=== PATIENT | male | born 1985 | race Caucasian/White ===

== ENCOUNTER 2017-06-18 20:56 | Inpatient (IN) | payer MEDICAID ==
[~2017-06-18] VITALS: Ht 170.2 cm; Wt 84.8 kg
[2017-06-18] MEDS: NACL 0.9% 1,000 ML IV SCH (12:43)
--- NOTE | 2017-06-18 20:56 | NUR ---
BIBA TO ER BED 6
[2017-06-18 20:59] VITALS: BP 120/77
[2017-06-18] MEDS ORDERED: NACL 0.9% 1,000 ML IV ONE ×2 (21:00→23:10)
[2017-06-18] MEDS ORDERED: LORazepam 2 MG/ML VIAL IVP ONE (21:00)
--- NOTE | 2017-06-18 21:00 | NUR ---
31 Y/O M BIB [facility] C/P ETOH, MUSHROOMS, MARIJUANA X 1DAY. PT RESPONDS TO [facility] BUT DOES NOT FOLLOW [facility] D/T ETOH, AND ALOC. VSS, ABELINO [place] MADE AWARE.
[2017-06-18 21:16] LABS: BASOPHILS # (AUTO) 0.1 K/uL (0.00-0.22); BASOPHILS % (AUTO) 1.7 % (0.0-2.0); EOSINOPHILS # (AUTO) 0.2 K/uL (0-0.4); EOSINOPHILS % (AUTO) 2.5 % (0.0-4.0); HEMOGLOBIN 14.5 g/dL (12.0-18.0); LYMPHOCYTES # (AUTO) 1.6 K/uL (2.0-11.5); LYMPHOCYTES % (AUTO) 18.3 % (20.5-51.1); MEAN CORPUSCULAR HEMOGLOBIN 31 pg (27-31); MEAN CORPUSCULAR HGB CONC 35 g/dL (33-37); MEAN CORPUSCULAR VOLUME 89 fL (80-94); MONOCYTES # (AUTO) 0.4 K/uL (0.8-1.0); MONOCYTES % (AUTO) 4.9 % (1.7-9.3); NEUTROPHILS # (AUTO) 6.3 K/uL (1.8-7.7); NEUTROPHILS % (AUTO) 72.6 % (42.2-75.2); PLATELET COUNT (AUTO) 184 K/uL (140-450); RED BLOOD CELL COUNT(AUTO) 4.73 MIL/uL (4.20-6.10); WHITE BLOOD COUNT (AUTO) 8.6 K/uL (4.8-10.8)
[2017-06-18 21:32] LABS: PROTHROMBIN TIME 10.3 secs (10.8-13.4)
[2017-06-18 21:35] LABS: ALBUMIN 3.7 g/dL (3.4-5.0); ANION GAP 11.6 (8-16); ASPARTATE AMINOTRANSFERASE 19 U/L (15-37); CARBON DIOXIDE 25.9 mmol/L (21-32); CHLORIDE 107 mmol/L (98-107); CREATININE 1.1 mg/dL (0.7-1.3); GFR ARICAN-AMERICAN 99 mL/min (>90); GLUCOSE 132 mg/dL (74-106); POTASSIUM 3.5 mmol/L (3.5-5.1); SODIUM SERUM 141 mmol/L (136-145); TOTAL BILIRUBIN 0.3 mg/dL (0.0-1.0); UREA NITROGEN, BLOOD 24 mg/dL (7-18)
[2017-06-18 21:37] LABS: ACETAMINOPHEN < 0.5 ug/ml (10-30); SALICYLATE < 2.8 mg/dL (2.8-20.0)
[2017-06-18 22:06] LABS: BARBITURATE, URINE NEG. ng/ml (NEG <=200); BENZODIAZEPINE, URINE NEG. ng/mL (NEG <=200); CANNABINOID, URINE POS. ng/mL (NEG <=50); COCAINE, URINE NEG. ng/mL (NEG <=300); OPIATE, URINE NEG. ng/mL (NEG <=2000); PHENCYCLIDINE SCREEN,URINE NEG. ng/mL (NEG <=25)
--- NOTE | 2017-06-18 22:13 | NUR ---
PT RESTING IN BED ASLEEP, VSS, SINUS RHYTHM, WILL CONT TO MONITOR.
[2017-06-18] MEDS ORDERED: MULTIVITAMIN-12 10 ML, THIAMINE 100 MG, MAGNESIUM SULFATE 50% 2,000 MG, FOLIC ACID 5 MG... IV ONE ×5 (23:10)
--- NOTE | 2017-06-18 23:18 | NUR ---
PT TAKEN FOR CT VIA [facility] [place].
[2017-06-18] MEDS ORDERED: HYDROcodone/APAP 7.5/325 MG 1 TAB PO PRN (23:20)
[2017-06-18] MEDS ORDERED: ONDANSETRON 4 MG/2 ML VIAL IVP PRN (23:20)
[2017-06-18] MEDS ORDERED: ACETAMINOPHEN 325 MG TAB PO PRN (23:20)
[2017-06-18] MEDS ORDERED: MECLIZINE 25 MG TAB PO PRN (23:30)
[2017-06-18] MEDS ORDERED: NITROGLYCERIN 0.4 MG TAB SL PRN (23:30)
[2017-06-18] MEDS ORDERED: LORazepam 2 MG/ML VIAL IVP PRN (23:30)
[2017-06-18] MEDS ORDERED: FOLIC ACID 5 MG/ML SYR ONE (23:37)
[2017-06-18] MEDS ORDERED: THIAMINE 200 MG/2 ML VIAL ONE (23:37)
[2017-06-18] MEDS ORDERED: MULTIVITAMIN-12 10 ML VIAL IV ONE (23:37)
[2017-06-18] MEDS ORDERED: MAGNESIUM SULFATE 50% 1000 MG/2 ML VIAL IV ONE (23:37)
--- NOTE | 2017-06-18 23:44 | NUR ---
PT RESTING, ON BINDERY WORKER, SINUS RHYTHM, NO S/S OF DISTRESS NOTED AT THE MOMENT.
--- NOTE | 2017-06-18 23:54 | NUR ---
Patient will be admitted to care of DR NIELSEN. Admited to TELEMETRY. Will go to room 121B. Belongings list completed. Report to VARGAS CULVER.
[2017-06-19 00:06] LABS: CHOL/HDL RATIO 2.6 (1-4.5); FREE T4 (FREE THYROXINE) 1.05 ng/dL (0.76-1.46); MAGNESIUM 2.2 mg/dL (1.8-2.4); PHOSPHORUS 3.9 mg/dL (2.5-4.9); THYROID STIMULATING HORMONE 1.16 uIU/mL (0.34-3.74)
[2017-06-19 00:13] LABS: APPEARANCE,URINE CLEAR (CLEAR); BILIRUBIN,URINE NEGATIVE (NEGATIVE); BLOOD, URINE NEGATIVE (NEGATIVE); COLOR,URINE YELLOW (YELLOW); LEUKOCYTE ESTERASE ,URINE NEGATIVE (NEGATIVE); NITRITE, URINE NEGATIVE (NEGATIVE); UGLUCOSE NEGATIVE (NEGATIVE)
[2017-06-19 00:14] LABS: RBC,URINE 0-5 (RARE) /HPF (0-5); WBC,URINE 0-5 (RARE) /HPF (0-5)
--- NOTE | 2017-06-19 00:25 | NUR ---
PT TRASFERED TO FLOOR VIA GURNEY, ACCOMPANIED BY RN AND EMT.
--- NOTE | 2017-06-19 00:44 | NUR ---
ADMITTED PATIENT TO THE TELE UNIT. PATIENT IS SLEEPING, UNABLE TO AROUSE. VITAL SIGNS ARE STABLE, NO S/S OF ACUTE DISTRESS NOTED, RESPIRATION EVEN AND UNLABORED. TELE MONITOR PLACED ON PATIENT. CALL LIGHT WITHIN REACH, SAFETY MEASURE ENSURED, WILL CONTINUE TO MONITOR
[2017-06-19 00:45] VITALS: BP 91/36
--- NOTE | 2017-06-19 02:16 | NUR ---
PATIENT ASLEEP IN BED, NO S/S OF ACUTE DISTRESS NOTED, RESPIRATION EVEN AND UNLABORED, CALL LIGHT WITHIN REACH, SAFETY MEASURE ENSURED, WILL CONTINUE TO MONITOR.
[2017-06-19] MEDS ORDERED: DEXTROSE 50% 50 ML SYR IVP PRN (02:35)
[2017-06-19] MEDS ORDERED: INSULIN LISPRO SLIDING SCALE 100 UNITS/ML VIAL SUBQ PRN (02:35)
[2017-06-19 04:00] VITALS: BP 107/48
[2017-06-19] MEDS: LORazepam 1 MG TAB PO SCH ×3 (05:57→20:24)
--- NOTE | 2017-06-19 05:59 | NUR ---
AM MEDICATION GIVEN, PATIENT TOLERATED WELL. WILL CONTINUE TO MONITOR.
--- NOTE | 2017-06-19 06:50 | NUR ---
PATIENT VOID X1. 360ML
[2017-06-19] MEDS: BLOOD GLUCOSE MONITORING 1 DEV DEV FS SCH ×4 (07:06→20:23)
[2017-06-19] MEDS: NACL 0.9% 1,000 ML IV SCH ×2 (07:08→22:00)
--- NOTE | 2017-06-19 07:17 | NUR ---
PATIENT HAS BEEN SCREENED AND CATEGORIZED MODERATE NUTRITION RISK. PATIENT WILL BE SEEN WITHIN 3-5 DAYS OF ADMISSION. 06/21/17-06/23/[address]
--- NOTE | 2017-06-19 07:28 | NUR ---
REPORT GIVEN TO DAY RN. PATIENT RESTING IN BED, NO S/S OF ACUTE DISTRESS NOTED, IN STABLE CONDITION.
--- NOTE | 2017-06-19 07:30 | NUR ---
RECEIVED PT FROM MAT TESTER RN. PT SLEEPING BUT EASILY AWAKEN. NO S/S OF RESPIRATORY DISTRESS NOTED. IV SITE INTACT AND PATENT. POC DISCUSSED WITH PT, PT VERBALIZED UNDERSTANDING, VITALS STABLE AT THIS TIME.CALL LIGHT IN REACH, WILL CONTINUE TO MONITOR
[2017-06-19 08:00] VITALS: BP 103/68
[2017-06-19] MEDS: PANTOPRAZOLE 40 MG INJ VIAL IVP SCH (08:58)
[2017-06-19] MEDS: MULTIVITAMIN 1 TAB PO SCH (08:59)
[2017-06-19] MEDS: DOCUSATE SODIUM 100 MG GELCAP PO SCH ×2 (08:59→20:23)
[2017-06-19] MEDS: ASPIRIN 81 MG TAB.CHEW PO SCH (08:59)
[2017-06-19] MEDS: THIAMINE 100 MG TAB PO SCH (08:59)
[2017-06-19] MEDS ORDERED: METOPROLOL 25 MG TAB PO SCH (09:00)
[2017-06-19] MEDS: LISINOPRIL 5 MG TAB PO SCH (09:00)
[2017-06-19] MEDS: FOLIC ACID 1 MG TAB PO SCH (09:00)
[2017-06-19 12:00] VITALS: BP 104/57
--- NOTE | 2017-06-19 19:30 | NUR ---
RECEIVED REPORT FROM DAY RN FOR CONTINUITY OF CARE. PATIENT IS ALERT AND ORIENTED X4, DISCUSSED PLAN OF CARE WITH PATIENT, VERBALIZED UNDERSTANDING. SHIFT ASSESSMENT DONE, VITAL SIGNS STABLE. NO RESPIRATORY DISTRESS NOTED ON ROOM AIR. PATIENT DENIES PAIN. IV TO LT AC PATENT AND INFUSING FLUIDS WELL. SAFETY PRECAUTIONS ENFORCED, CALL LIGHT WITHIN REACH. WILL CONTINUE TO MONITOR.
[2017-06-19 20:00] VITALS: BP 114/54
--- NOTE | 2017-06-19 20:43 | NUR ---
DUE MEDICATIONS ADMINISTERED, TOLERATED WELL. PATIENT RESTING IN BED, NO DISTRESS NOTED. CALL LIGHT WITHIN REACH.
[2017-06-19] MEDS ORDERED: ATORVASTATIN 20 MG TAB PO SCH (21:00)
--- NOTE | 2017-06-19 22:12 | NUR ---
PATIENT ASLEEP AT THIS TIME, NO DISTRESS NOTED, CALL LIGHT WITHIN REACH. WILL CONTINUE TO MONITOR.
[2017-06-20] VITALS: BP 122/62
--- NOTE | 2017-06-20 | NUR ---
VITAL SIGNS STABLE, PATIENT RESTING IN BED NO DISTRESS OR DISCOMFORT NOTED. SAFETY MEASURES ENFORCED.
[2017-06-20] MEDS: NACL 0.9% 1,000 ML IV SCH ×2 (00:30→09:11)
--- NOTE | 2017-06-20 02:05 | NUR ---
PATIENT ASLEEP AT THIS TIME, NO DISTRESS OR DISCOMFORT NOTED. CALL LIGHT WITHIN REACH.
--- NOTE | 2017-06-20 04:00 | NUR ---
PATIENT ASLEEP AT THIS TIME, NO DISTRESS OR DISCOMFORT NOTED. CALL LIGHT WITHIN REACH.
[2017-06-20] MEDS: LORazepam 1 MG TAB PO SCH (05:42)
[2017-06-20] MEDS: BLOOD GLUCOSE MONITORING 1 DEV DEV FS SCH ×2 (05:42→11:30)
--- NOTE | 2017-06-20 05:42 | NUR ---
BLOOD SUGAR TAKEN, 97 NO COVERAGE NEEDED. DUE MEDICATIONS ADMINISTERED, PATIENT RESTING NO DISTRESS OR DISCOMFORT NOTED.
[2017-06-20 05:55] LABS: BASOPHILS # (AUTO) 0.2 K/uL (0.00-0.22); BASOPHILS % (AUTO) 4.2 % (0.0-2.0); EOSINOPHILS # (AUTO) 0.2 K/uL (0-0.4); EOSINOPHILS % (AUTO) 4.2 % (0.0-4.0); HEMOGLOBIN 13.8 g/dL (12.0-18.0); LYMPHOCYTES # (AUTO) 1.6 K/uL (2.0-11.5); LYMPHOCYTES % (AUTO) 28.2 % (20.5-51.1); MEAN CORPUSCULAR HEMOGLOBIN 31 pg (27-31); MEAN CORPUSCULAR HGB CONC 35 g/dL (33-37); MEAN CORPUSCULAR VOLUME 90 fL (80-94); MONOCYTES # (AUTO) 0.3 K/uL (0.8-1.0); MONOCYTES % (AUTO) 5.6 % (1.7-9.3); NEUTROPHILS # (AUTO) 3.3 K/uL (1.8-7.7); NEUTROPHILS % (AUTO) 57.8 % (42.2-75.2); PLATELET COUNT (AUTO) 167 K/uL (140-450); RED BLOOD CELL COUNT(AUTO) 4.44 MIL/uL (4.20-6.10); RED CELL DISTRIBUTION WIDTH 12.3 % (11.6-13.7); WHITE BLOOD COUNT (AUTO) 5.6 K/uL (4.8-10.8)
[2017-06-20 06:19] LABS: ANION GAP 11.4 (8-16); CARBON DIOXIDE 26.6 mmol/L (21-32); CREATININE 0.8 mg/dL (0.7-1.3)
[2017-06-20 06:25] LABS: MAGNESIUM 1.9 mg/dL (1.8-2.4); PHOSPHORUS 2.9 mg/dL (2.5-4.9)
--- NOTE | 2017-06-20 07:15 | NUR ---
ENDORSED PATIENT TO DAY RN FOR CONTINUITY OF CARE, PATIENT IS IN STABLE CONDITION.
--- NOTE | 2017-06-20 07:22 | NUR ---
RECEIVED REPORT FROM BUILDING SERVICE WORKER NURSE, PT IS SLEEPING IN BED BUT EASILY AWAKEN, PT IS A/OX4, AMBULATORY, SKIN IS INTACT, NO S/S OF RESPIRATORY DISTRESS OR DISCOMFORT NOTED, SAFETY/FALL PRECAUTIONS ARE IN PLACE, DISCUSSED PLAN OF CARE WITH PT, PT VERBALIZED UNDERSTANDING, CALL LIGHT IS WITHIN REACH, WILL CONTINUE TO MONITOR.
[2017-06-20 08:00] VITALS: BP 130/76
[2017-06-20] MEDS: FOLIC ACID 1 MG TAB PO SCH (09:10)
[2017-06-20] MEDS: MULTIVITAMIN 1 TAB PO SCH (09:10)
[2017-06-20] MEDS: LISINOPRIL 5 MG TAB PO SCH (09:10)
[2017-06-20] MEDS: ASPIRIN 81 MG TAB.CHEW PO SCH (09:10)
[2017-06-20] MEDS: DOCUSATE SODIUM 100 MG GELCAP PO SCH (09:10)
[2017-06-20] MEDS: THIAMINE 100 MG TAB PO SCH (09:10)
--- NOTE | 2017-06-20 09:10 | NUR ---
DUE MEDICATIONS GIVEN, PT TOLERATED WELL, CALL LIGHT IS WITHIN REACH.
[2017-06-20] MEDS: PANTOPRAZOLE 40 MG INJ VIAL IVP SCH (09:11)
--- NOTE | 2017-06-20 10:36 | NUR ---
PT IS SLEEPING IN BED AT THIS TIME, CALL LIGHT IS WITHIN REACH.
[2017-06-20] MEDS ORDERED: ATI.5 PO ×2 (10:56→11:05)
[2017-06-20] MEDS ORDERED: ESCI10TA PO ×2 (10:56→11:05)
--- NOTE | 2017-06-20 12:55 | NUR ---
PT STABLE UPON DISCHARGE, ID WRIST BAND REMOVED.
== END 2017-06-20 12:52 | disposition home or self-care (01) | DRG 775 ==
LOC: MED 20:56 → MTU 23:25
PROVIDERS: ADMIT Family Medicine; ATTEND Family Medicine
DX: F10.239 Alcohol dependence with withdrawal, unspecified (principal); I63.9 Cerebral infarction, unspecified; N17.0 Acute kidney failure with tubular necrosis; G92 Toxic encephalopathy; F12.10 Cannabis abuse, uncomplicated; G90.9 Disorder of the autonomic nervous system, unspecified; M94.0 Chondrocostal junction syndrome [Tietze]; Y90.6 Blood alcohol level of 120-199 mg/100 ml; E11.65 Type 2 diabetes mellitus with hyperglycemia; F15.10 Other stimulant abuse, uncomplicated; F10.229 Alcohol dependence with intoxication, unspecified; F31.9 Bipolar disorder, unspecified; F16.10 Hallucinogen abuse, uncomplicated; Z59.0 Homelessness; E83.51 Hypocalcemia
CPT/HCPCS: 36415; 70450; 71010; 80048; 80053; 80305; 81001; 82140; 82150; 82948; 83036; 83605; 83690; 83735; 83880; 84100; 84439; 84443; 84484; 85025; 85610; 85730; 87040; 87081; 87086; 93005; 93880; 93925; 93970; 96361; 96365; 96375; 99285; A9153; C1758; C9113; G0480; G0482; J1815; J2060; J3411; J3475; J3490; J7030; Q0092

== ENCOUNTER 2017-08-07 02:00 | Emergency (ER) | payer SELFPAY ==
[~2017-08-07] VITALS: Ht 170.2 cm; Wt 90.7 kg
[~2017-08-07 02:00] MED LIST: ATI.5 PO; ESCI10TA PO
[2017-08-07 02:04] VITALS: BP 142/76
[2017-08-07 05:00] VITALS: BP 136/67
== END 2017-08-07 04:57 | disposition home or self-care (01) ==
LOC: MED 02:00
DX: T16.1XXA Foreign body in right ear, initial encounter (principal); F17.210 Nicotine dependence, cigarettes, uncomplicated; Z88.8 Allergy status to other drugs, medicaments and biological substances; X58.XXXA Exposure to other specified factors, initial encounter; Y93.89 Activity, other specified; Y92.89 Other specified places as the place of occurrence of the external cause; Y99.8 Other external cause status
CPT/HCPCS: 69200; 99284

== ENCOUNTER 2023-04-28 11:50 | Emergency (ER) | payer MEDICAID ==
[~2023-04-28] VITALS: Ht 170.2 cm; Wt 100.2 kg
[2023-04-28 12:02] VITALS: BP 148/98; PULSE 98; RESP 19; TEMP 97; O2SAT 99
[2023-04-28] MEDS ORDERED: IBUP-2213 PO (13:15)
[2023-04-28] MEDS ORDERED: DEXAMETHASONE 10 MG/ML VIAL IM ONE (13:15)
[2023-04-28] MEDS ORDERED: IBUPROFEN 600 MG TAB PO ONE (13:15)
[2023-04-28] MEDS ORDERED: ACET-10509 PO (13:15)
[2023-04-28] MEDS ORDERED: AZIT250T4 PO (13:15)
[2023-04-28] MEDS ORDERED: DEXAMETHASONE 10 MG/ML VIAL ONE (14:50)
[2023-04-28] MEDS ORDERED: IBUPROFEN 600 MG TAB ONE (14:51)
--- NOTE | 2023-04-28 15:00 | NUR ---
Patient discharged with v/s stable. Written and verbal after care instructions given and explained. Patient verbalized understanding. Ambulatory with steady gait. All questions addressed prior to discharge. Advised to follow up with PMD.
== END 2023-04-28 15:00 | disposition home or self-care (01) ==
LOC: MED 11:50
DX: J02.8 Acute pharyngitis due to other specified organisms (principal); B96.89 Other specified bacterial agents as the cause of diseases classified elsewhere; Z79.899 Other long term (current) drug therapy; Z79.1 Long term (current) use of non-steroidal anti-inflammatories (NSAID); Z79.2 Long term (current) use of antibiotics
CPT/HCPCS: 86308; 87081; 96372; 99283; J1100